=== PATIENT | female | born 1970 | race Caucasian/White ===

== ENCOUNTER 2022-09-25 03:08 | Outpatient (CLI) | payer MEDICAID, SELFPAY ==
[2022-09-25 09:12] LABS: HCT 34.9 % (36.0-46.0); HGB 11.8 g/dL (11.2-15.7); MCH 28.6 pg (27.0-33.0); MCHC 33.8 % (32.0-36.0); MCV 85 fL (80-95); MPV 9.6 fL (8.0-11.0); Platelet Count 202 10^3/uL (130-400); RBC 4.12 10^6/uL (3.93-5.22); RDW 11.9 % (11.7-14.6); RDW-SD 36.2 fL; WBC 4.98 10^3/uL (4.4-10.8)
[2022-09-25 10:04] LABS: ALT 34 U/L (14-59); AST 20 U/L (15-37); Albumin 3.5 g/dL (3.4-5.0); Alkaline Phosphatase 63 U/L (46-116); Anion Gap 4.8 mmol/L (3-11); BUN 13 mg/dL (7-18); Bilirubin, Total 0.3 mg/dL (0.2-1.0); CO2 31.2 mmol/L (21.0-32.0); CREATININE 0.8 mg/dL (0.55-1.02); Calcium 8.7 mg/dL (8.5-10.1); Calculated LDL 84 mg/dL (<100); Chloride 107 mmol/L (98-107); Cholesterol 141 mg/dL (<200); Estimated GFR 89.15 (mL/min/1.73m2); Ferritin 51 ng/mL (8-252); Folate 6.6 ng/mL (8.6-20.0); Glucose 102 mg/dL (74-106); HDL Cholesterol 45 mg/dL (40-60); Potassium 3.8 mmol/L (3.5-5.1); Sodium 143 mmol/L (136-145); TSH 0.04 uIU/mL (0.36-3.74); Total Protein 6.7 g/dL (6.4-8.2); Triglyceride 60 mg/dL (<150); Vitamin B12 543 pg/mL (193-986)
[2022-09-25 10:32] LABS: Iron 48 ug/dL (50-170); Total Iron Binding Capacity 241 ug/dL (250-450); Transferrin Sat 20 % (15-50)
== END 2022-09-25 03:09 | disposition home or self-care (01) ==
LOC: LBO 03:08
PROVIDERS: Internal Medicine Endocrinology, Diabetes & Metabolism; PCP Nurse Practitioner Family
DX: E06.3 Autoimmune thyroiditis (principal); D51.0 Vitamin B12 deficiency anemia due to intrinsic factor deficiency; E61.1 Iron deficiency
CPT/HCPCS: 36415; 80053; 80061; 85027; 82607; 82728; 82746; 83540; 83550; 84443

== ENCOUNTER 2022-12-26 01:22 | Outpatient (CLI) | payer MEDICAID, SELFPAY ==
[2022-12-26 13:47] LABS: Abs Immature Grans 0.01 10^3/uL (0.0-0.06); Absolute Basophil Count 0.02 10^3/uL (0.0-0.2); Absolute Eosinophil Count 0.09 10^3/uL (0.0-0.7); Absolute Lymphocyte Count 1.41 10^3/uL (1.2-3.4); Absolute Monocyte Count 0.34 10^3/uL (0.1-0.8); Absolute Neutrophil Count 4.33 10^3/uL (1.2-6.7); Basophils % 0.3; Eosinophils % 1.5; HCT 38.7 % (36.0-46.0); HGB 13.1 g/dL (11.2-15.7); Immature Grans % 0.2; Lymphocytes % 22.7; MCH 29.4 pg (27.0-33.0); MCHC 33.9 % (32.0-36.0); MCV 87 fL (80-95); MPV 10.2 fL (8.0-11.0); Monocytes % 5.5; Neutrophils % 69.8; Platelet Count 229 10^3/uL (130-400); RBC 4.45 10^6/uL (3.93-5.22); RDW-SD 38.5 fL
[2022-12-26 14:00] LABS: Hemoglobin A1C 5.2 % (<5.7)
[2022-12-26 15:20] LABS: ALT 30 U/L (14-59); AST 21 U/L (15-37); Alkaline Phosphatase 63 U/L (46-116); Anion Gap 6.4 mmol/L (3-11); BUN 20 mg/dL (7-18); Bilirubin, Total 0.4 mg/dL (0.2-1.0); CO2 29.6 mmol/L (21.0-32.0); CREATININE 1.2 mg/dL (0.55-1.02); Calcium 8.9 mg/dL (8.5-10.1); Calculated LDL 99 mg/dL (<100); Chloride 103 mmol/L (98-107); Cholesterol 157 mg/dL (<200); Ferritin 43 ng/mL (8-252); Glucose 98 mg/dL (74-106); HDL Cholesterol 42 mg/dL (40-60); Potassium 3.7 mmol/L (3.5-5.1); Sodium 139 mmol/L (136-145); TSH (W/Ref FT4) 0.94 uIU/mL (0.36-3.74); Total Protein 7.6 g/dL (6.4-8.2); Triglyceride 84 mg/dL (<150); Vitamin B12 778 pg/mL (193-986)
== END 2022-12-26 01:23 | disposition home or self-care (01) ==
LOC: LBO 01:22
PROVIDERS: Internal Medicine Endocrinology, Diabetes & Metabolism; PCP Nurse Practitioner Family; Visit Provider Nurse Practitioner Family
DX: D51.0 Vitamin B12 deficiency anemia due to intrinsic factor deficiency (principal); E03.9 Hypothyroidism, unspecified; E61.1 Iron deficiency; R79.89 Other specified abnormal findings of blood chemistry; Z13.1 Encounter for screening for diabetes mellitus; Z13.220 Encounter for screening for lipoid disorders
CPT/HCPCS: 36415; 80053; 80061; 82607; 82728; 82746; 83036; 84443; 85025

== ENCOUNTER 2023-01-01 00:41 | Outpatient (CLI) | payer MEDICAID, SELFPAY ==
--- NOTE | 2023-01-01 08:30 | DI.MAMMO_ITS ---
Exam(s) MAMMO SCREENING EXAM: MAMMO SCREENING CLINICAL HISTORY: screening Z12.39 FOR BREAST CANCER TECHNIQUE: Mammograms were interpreted according to the usual protocol including computer analysis w ith CAD system, tomosynthesis and C-view imaging. COMPARISON: No images are available. [facility] available. FINDINGS: The breasts are composed of heterogeneously dense fibroglandular densities, Breast Density category C . No suspicious microcalcifications are seen. There is a grouping of benign-appearing calcifications i n the lower inner quadrant of the left breast which was mention on multiple prior reports. There is a suggestion of areas of nodularity bilaterally in the upper outer quadrants. These could represent cysts. There is no mention on the prior exams. No skin thickening or abnormal axillary lymph nodes are seen. IMPRESSION: BI-RADS Category 0 - Assessment Incomplete: Need additional imaging evaluation Bilateral breast ultrasound is recommended for further evaluation of areas of nodularity in the upper outer quadrants. . Breast Density Category C, heterogeneously Dense. The mammogram demonstrates the patient's breast tissue is dense. Dense breast tissue is very common a nd is not abnormal but dense breast tissue can make it harder to find cancer on a mammogram. Also, de nse breast tissue may increase breast cancer risk. This information about the result of the mammogram report was provided to the patient to raise their awareness. Use this report when you speak with the patient about their risks for breast cancer, which includes their family history. At that time, you may recommend additional screening tests (Ultrasound or MRI) as they might be useful based on their r isk. A negative radiographic report should not delay biopsy if a dominant or clinically suspicious mass is present. Up to ten percent of cancers are not identified on mammography. A negative report may reinforce clinical impression. Adenosis and dense breasts may obscure an underlying neoplasm. False positive reports average 6 to 10%.
== END 2023-01-01 01:01 ==
LOC: DI 00:41
PROVIDERS: PCP Nurse Practitioner Family; Visit Provider Nurse Practitioner Family
DX: Z12.31 Encounter for screening mammogram for malignant neoplasm of breast (principal)
CPT/HCPCS: 77063; 77067

== ENCOUNTER 2023-01-22 01:52 | Outpatient (CLI) | payer MEDICAID, SELFPAY ==
--- NOTE | 2023-01-22 08:45 | DI.US_ITS ---
Exam(s) US BREAST RT LIMITED US BREAST LT LIMITED EXAM: US BREAST LT LIMITED CLINICAL HISTORY: BENIGN-APPEARING CALCIFICATIONS IN THE LOWER INNER QUADRANT TECHNIQUE: Bilateral breast performed using standard protocol. COMPARISON: MG MG MAMMO SCREENING from 01/01/2023 US US BREAST RT LIMITED from 01/22/2023 FINDINGS: No suspicious solid or cystic masses, hypoechoic foci, areas of abnormal shadowing, or areas of skin thickening. Two small hypoechoic nodules, measuring 4 millimeters in size noted, in the 12 o'clock position on the right breast and at the 3 o'clock position of the left breast. IMPRESSION: No sonographically suspicious finding. Recommend bilateral screening mammography in 1 year. BI-RADS Category 2 - Benign Findings DATA REPOSITORY:
== END 2023-01-22 02:12 ==
LOC: DI 01:53
PROVIDERS: PCP Nurse Practitioner Family; Visit Provider Nurse Practitioner Family
DX: Z12.31 Encounter for screening mammogram for malignant neoplasm of breast (principal); R92.1 Mammographic calcification found on diagnostic imaging of breast
CPT/HCPCS: 76642

== ENCOUNTER 2023-03-02 09:27 | Outpatient (REF) | payer MEDICAID, SELFPAY ==
--- NOTE | 2023-03-02 08:50 | PAPFT_PTH ---
PATIENT: Morena De La Paz LOC: [facility] U#:[id number] AGE/SX: 52/F ROOM: RE03/02/[address]: Yelitza Baptiste MD : 1970 BED: DIS: 03/02/2023 SPEC #: [id number] RECD: 03/02/23 14:27 STATUS: CRYSTAL WERNER #: [id number] BHASKAR: 03/02/23 08:[address]: Yelitza Baptiste DEPT: [facility] Cytology RECD BY: Sabrina Lopez ENTERED: 03/02/23 14:28 SP TYPE: PAPFT OTHR DR: Mindi Ro, VISHAL Tissues: 1 - CX/ENDOCX FOR PAP SMEARS Procedures: PAP THIN PREP/[facility] Screening HPV DNA PROBE Comments: [id number]
== END 2023-03-02 09:28 | disposition home or self-care (01) ==
LOC: LBN 09:27
PROVIDERS: PCP Nurse Practitioner Family; Visit Provider Obstetrics & Gynecology
DX: Z12.4 Encounter for screening for malignant neoplasm of cervix (principal); Z11.51 Encounter for screening for human papillomavirus (HPV)
CPT/HCPCS: 88142; 87624

== ENCOUNTER 2023-05-01 04:33 | Outpatient (CLI) | payer MEDICAID, SELFPAY ==
[2023-05-01 10:01] LABS: TSH (W/Ref FT4) 6.14 uIU/mL (0.36-3.74); Vitamin B12 1007 pg/mL (193-986)
[2023-05-01 10:04] LABS: Folate > 20.0 ng/mL (8.6-20.0)
[2023-05-01 10:23] LABS: FREE T4 1.19 ng/dL (0.76-1.46)
== END 2023-05-01 04:34 | disposition home or self-care (01) ==
LOC: LBO 04:33
PROVIDERS: PCP Nurse Practitioner Family; Visit Provider Nurse Practitioner Family
DX: D51.0 Vitamin B12 deficiency anemia due to intrinsic factor deficiency (principal); E03.9 Hypothyroidism, unspecified
CPT/HCPCS: 36415; 82607; 82746; 84439; 84443

== ENCOUNTER 2023-07-29 04:48 | Outpatient (CLI) | payer MEDICAID, SELFPAY ==
[2023-07-29 12:56] LABS: TSH (W/Ref FT4) 1.61 uIU/mL (0.36-3.74)
== END 2023-07-29 04:49 | disposition home or self-care (01) ==
LOC: LOS 04:49
PROVIDERS: PCP Nurse Practitioner Family; Visit Provider Nurse Practitioner Family
DX: E03.9 Hypothyroidism, unspecified (principal)
CPT/HCPCS: 36415; 84443

== ENCOUNTER 2023-10-30 01:17 | Outpatient (CLI) | payer MEDICAID, SELFPAY ==
[2023-10-30 13:54] LABS: ALT 33 U/L (14-59); AST 20 U/L (15-37); Albumin 3.8 g/dL (3.4-5.0); Alkaline Phosphatase 67 U/L (46-116); Anion Gap 6.6 mmol/L (3-11); BUN 19 mg/dL (7-18); Bilirubin, Total 0.5 mg/dL (0.2-1.0); CO2 28.4 mmol/L (21.0-32.0); CREATININE 0.8 mg/dL (0.55-1.02); Calcium 8.5 mg/dL (8.5-10.1); Chloride 105 mmol/L (98-107); Glucose 112 mg/dL (74-106); Potassium 3.7 mmol/L (3.5-5.1); Sodium 140 mmol/L (136-145); Total Protein 7.2 g/dL (6.4-8.2)
== END 2023-10-30 01:18 | disposition home or self-care (01) ==
LOC: LBO 01:17
PROVIDERS: PCP Nurse Practitioner Family; Visit Provider Obstetrics & Gynecology
DX: N95.1 Menopausal and female climacteric states (principal)
CPT/HCPCS: 36415; 80053

== ENCOUNTER 2024-01-08 01:41 | Outpatient (CLI) | payer MEDICAID, SELFPAY ==
[2024-01-08 09:30] LABS: Hemoglobin A1C 5.7 % (<5.7)
[2024-01-08 10:21] LABS: ALT 31 U/L (14-59); AST 16 U/L (15-37); Albumin 3.6 g/dL (3.4-5.0); Alkaline Phosphatase 58 U/L (46-116); Anion Gap 6.2 mmol/L (3-11); BUN 14 mg/dL (7-18); Bilirubin, Total 0.35 mg/dL (0.2-1.0); CO2 30.8 mmol/L (21.0-32.0); CREATININE 0.8 mg/dL (0.55-1.02); Calcium 8.8 mg/dL (8.5-10.1); Chloride 105 mmol/L (98-107); Ferritin 59 ng/mL (8-252); Folate 10.7 ng/mL (8.6-20.0); Glucose 107 mg/dL (74-106); Potassium 3.8 mmol/L (3.5-5.1); Sodium 142 mmol/L (136-145); TSH (W/Ref FT4) 0.53 uIU/mL (0.36-3.74); Vitamin B12 672 pg/mL (193-986)
[2024-01-08 10:52] LABS: Iron 58 ug/dL (50-170); Total Iron Binding Capacity 258 ug/dL (250-450); Transferrin Sat 22 % (15-50)
== END 2024-01-08 01:42 | disposition home or self-care (01) ==
PROVIDERS: PCP Nurse Practitioner Family; Visit Provider Internal Medicine Endocrinology, Diabetes & Metabolism
DX: D52.9 Folate deficiency anemia, unspecified (principal); E61.1 Iron deficiency; E06.3 Autoimmune thyroiditis
CPT/HCPCS: 36415; 80053; 82607; 82728; 82746; 83036; 83540; 83550; 84443

== ENCOUNTER 2024-07-22 13:36 | Outpatient (CLI) | payer MEDICAID, SELFPAY ==
[2024-07-22 08:41] LABS: Abs Immature Grans 0.02 10^3/uL (0.0-0.06); Absolute Basophil Count 0.03 10^3/uL (0.0-0.2); Absolute Eosinophil Count 0.09 10^3/uL (0.0-0.7); Absolute Lymphocyte Count 1.37 10^3/uL (1.2-3.4); Absolute Monocyte Count 0.34 10^3/uL (0.1-0.8); Absolute Neutrophil Count 2.84 10^3/uL (1.2-6.7); Basophils % 0.6 %; Eosinophils % 1.9 %; HCT 37.8 % (36.0-46.0); HGB 12.8 g/dL (11.2-15.7); Immature Grans % 0.4 %; Lymphocytes % 29.2 %; MCHC 33.9 % (32.0-36.0); MCV 83 fL (80-95); Monocytes % 7.2 %; Neutrophils % 60.7 %; Platelet Count 232 10^3/uL (130-400); RBC 4.57 10^6/uL (3.93-5.22); RDW 11.9 % (11.7-14.6); WBC 4.69 10^3/uL (4.4-10.8)
[2024-07-22 08:42] LABS: Hemoglobin A1C 5.7 % (<5.7)
[2024-07-22 09:21] LABS: Iron 59 ug/dL (50-170); Total Iron Binding Capacity 314 ug/dL (250-450); Transferrin Sat 19 % (15-50)
[2024-07-22 09:47] LABS: ALT 38 U/L (14-59); AST 21 U/L (15-37); Albumin 3.9 g/dL (3.4-5.0); Alkaline Phosphatase 71 U/L (46-116); Anion Gap 7.8 mmol/L (3-11); BUN 16 mg/dL (7-18); Bilirubin, Total 0.53 mg/dL (0.2-1.0); CO2 30.2 mmol/L (21.0-32.0); CREATININE 0.9 mg/dL (0.55-1.02); Calcium 9.3 mg/dL (8.5-10.1); Chloride 103 mmol/L (98-107); Estimated GFR 76.92 (mL/min/1.73m2); Ferritin 62 ng/mL (8-252); Folate 10.9 ng/mL (8.6-20.0); Glucose 100 mg/dL (74-106); Potassium 3.9 mmol/L (3.5-5.1); Sodium 141 mmol/L (136-145); Total Protein 7.8 g/dL (6.4-8.2); Vitamin B12 763 pg/mL (193-986)
[2024-07-22 10:28] LABS: FREE T4 1.45 ng/dL (0.76-1.46); TSH 0.34 uIU/mL (0.36-3.74)
[2024-07-22 19:20] LABS: HBs Antibody, Quant <3.1 mIU/mL (See Note); HIV-1/2 Ag & Ab Screen Negative (Negative); Hep B Surface Ab Negative (See Note); Hepatitis B Core Antibody Negative (Negative); Hepatitis B Surface Antigen Negative (Negative)
[2024-07-22 19:32] LABS: Hepatitis C Ab w Rflx HCV PCR Negative (Negative)
== END 2024-07-22 13:37 | disposition home or self-care (01) ==
LOC: LBO 13:37
PROVIDERS: PCP Nurse Practitioner Family; Visit Provider Internal Medicine Endocrinology, Diabetes & Metabolism
DX: E03.9 Hypothyroidism, unspecified (principal); Z11.59 Encounter for screening for other viral diseases; Z11.4 Encounter for screening for human immunodeficiency virus [HIV]
CPT/HCPCS: 36415; 80053; 86704; 86706; 86803; 87340; 87389; 82607; 82728; 82746; 83036; 83540; 83550; 84439; 84443; 85025

== ENCOUNTER 2024-09-28 12:24 | Outpatient (REF) | payer MEDICAID, SELFPAY ==
--- NOTE | 2024-09-28 11:00 | PAPFT_PTH ---
PATIENT: Morena De La Paz LOC: [facility] U#:[id number] AGE/SX: 54/F ROOM: RE09/28/[address]: Khadra Quintana : 1970 BED: DIS: 09/28/2024 SPEC #: [id number] RECD: 09/28/24 12:57 STATUS: SHELLYTravis REJustine #: [id number] BHASKAR: 09/28/24 11:[address]: Khadra Quintana DEPT: [facility] Cytology RECD BY: Morelia Sandoval ENTERED: 09/28/24 12:58 SP TYPE: PAPFT OTHR DR: Mindi Ro, PRINT BU[employer]ER Tissues: 1 - CX/ENDOCX FOR PAP SMEARS Procedures: PAP THIN PREP/[facility] Screening HPV DNA PROBE Comments: [id number] (HPV 16 & 18/45)
== END 2024-09-28 12:25 | disposition home or self-care (01) ==
LOC: LBN 12:24
PROVIDERS: PCP Nurse Practitioner Family; Visit Provider Advanced Practice Midwife
DX: R87.619 Unspecified abnormal cytological findings in specimens from cervix uteri (principal); Z12.4 Encounter for screening for malignant neoplasm of cervix
CPT/HCPCS: 88142; 87624

== ENCOUNTER 2024-09-30 00:04 | Outpatient (CLI) | payer MEDICAID, SELFPAY ==
--- NOTE | 2024-09-30 07:30 | DI.MAMMO_ITS ---
Exam(s) MAMMO SCREENING EXAM: MAMMO SCREENING CLINICAL HISTORY: screening,Z12.39 TECHNIQUE: Bilateral full field digital CC and MLO mammographic images were obtained with 3D tomosyn thesis and utilizing computer aided detection (CAD). COMPARISON: Available for comparison. FINDINGS: Masses/Architectural Distortion: No suspicious masses or microcalcifications are present. Microcalcifications: No suspicious pleomorphic-type are seen. Skin Thickening/Nipple Retraction: None. IMPRESSION: 1. No significant interval change with no specific features of malignancy noted. 2. Unless there is more urgent need, screening mammography is recommended, as per [employer] guidelines. BI-RADS Category 1 - Negative Breast Density - Category C - Heterogeneously dense Breast density category C or D implies that the patient has dense breast tissue. Dense breast tissue is very common and is not abnormal but dense breast tissue can make it harder to find cancer on a ma mmogram. Also, dense breast tissue may increase their breast cancer risk. This information about the result of the mammogram report was provided to the patient to raise their awareness. Use this report when you speak with the patient about their risks for breast cancer, which includes their family hist ory. At that time, you may recommend for more screening tests (Ultrasound or MRI) as they might be us eful based on their risk. A negative radiographic report should not delay biopsy if a dominant or clinically suspicious mass is present. Up to ten percent of cancers are not identified on mammography. A negative report may reinforce clinical impression. Adenosis and dense breasts may obscure an underlying neoplasm. False positive reports average 6 to 10%. Patient will receive a letter notifying them of these results.
== END 2024-09-30 00:24 ==
LOC: DI 00:04
PROVIDERS: PCP Nurse Practitioner Family; Visit Provider Nurse Practitioner Family
DX: Z12.31 Encounter for screening mammogram for malignant neoplasm of breast (principal); R92.333 Mammographic heterogeneous density, bilateral breasts
CPT/HCPCS: 77063; 77067

== ENCOUNTER 2024-11-22 08:33 | Outpatient (CLI) | payer MEDICAID, SELFPAY ==
[2024-11-22 09:14] LABS: Hemoglobin A1C 5.5 % (<5.7)
[2024-11-22 09:43] LABS: Calculated LDL 100 mg/dL (<100); Cholesterol 162 mg/dL (<200); Glucose 103 mg/dL (74-106); HDL Cholesterol 48 mg/dL (>or=50); TSH 0.06 uIU/mL (0.36-3.74); Triglyceride 70 mg/dL (<150)
== END 2024-11-22 08:34 | disposition home or self-care (01) ==
LOC: LBO 08:34
PROVIDERS: PCP Nurse Practitioner Family; Visit Provider Internal Medicine Endocrinology, Diabetes & Metabolism
DX: E06.3 Autoimmune thyroiditis (principal); E88.810 Metabolic syndrome
CPT/HCPCS: 36415; 80061; 82947; 83036; 84443

== ENCOUNTER 2025-03-17 15:11 | Outpatient (CLI) | payer MEDICAID, SELFPAY ==
[2025-03-17 08:46] LABS: Hemoglobin A1C 5.7 % (<5.7)
[2025-03-17 10:02] LABS: ALT 39 U/L (14-59); AST 19 U/L (15-37); Albumin 4.0 g/dL (3.4-5.0); Alkaline Phosphatase 77 U/L (46-116); Anion Gap 6.6 mmol/L (3-11); BUN 16 mg/dL (7-18); Bilirubin, Total 0.6 mg/dL (0.2-1.0); CO2 31.4 mmol/L (21.0-32.0); Calcium 9.1 mg/dL (8.5-10.1); Chloride 103 mmol/L (98-107); Estimated GFR 88.05 (mL/min/1.73m2); Folate 12.1 ng/mL (8.6-20.0); Glucose 100 mg/dL (74-106); Potassium 3.9 mmol/L (3.5-5.1); Sodium 141 mmol/L (136-145); TSH 0.95 uIU/mL (0.36-3.74); Total Protein 7.5 g/dL (6.4-8.2); Vitamin B12 795 pg/mL (193-986)
[2025-03-17 19:00] LABS: T3,Free 4.0 pg/mL (2.8-5.3)
== END 2025-03-17 15:12 | disposition home or self-care (01) ==
LOC: LBO 15:12
PROVIDERS: PCP Nurse Practitioner Family; Visit Provider Internal Medicine Endocrinology, Diabetes & Metabolism
DX: E88.810 Metabolic syndrome (principal); E06.3 Autoimmune thyroiditis; D52.9 Folate deficiency anemia, unspecified
CPT/HCPCS: 36415; 80053; 82607; 82746; 83036; 84439; 84443; 84481